=== PATIENT | female | born 1980 | race African-American/Black ===

== ENCOUNTER 2023-08-19 10:30 | Outpatient (RCR) | payer OTHER, SELFPAY ==
--- NOTE | 2023-07-20 12:21 | OTOPEVAL1 ---
Assessment and note entered by Fransisco Leonard, CRISTOPHER/Tom, CHT Evaluation Information Assessment Status Evaluation Diagnosis laceration of right index finger Subjective Information Initial injury was March 08, 2023. She cut her hand on a glass. She was stitched up in the ER and sent home. She had a round of therapy and continued to have swelling and pain. She followed up with a surgeon and underwent another surgery May 26, 2023 where they found pieces of glass in the wound. She presents today to continue therapy. She reports with functional use her hand/index finger feels weak and tight. She is right handed. Reported Pain Level Pain Score 0: Self Report Additional Pain Score Comments No pain at rest. Just sore . Reports pain can get up to 6/10 at worst . Assessment OT Clinical Summary Patient referred to outpatient hand therapy with reduced functional use of the right hand following laceration over the MCP joint of the right index finger. She had some complications due to having glass in the wound and she had to undergo a second surgery. She presents today with residual stiffness and weakness. Skilled OT indicated for modalities, manual therapy, scar mobilization, ROM , strengthening, and HEP instruction. Plan of Care Interventions Therapeutic Exercise,Manual Therapy,Therapeutic Activities,Hot Pack/Cold Pack,Ultrasound,Paraffin OT Services Indicated Yes Treatment Frequency and 1x/week for 4 weeks Duration These treatments will address the objective and functional deficits as defined above. The patient will be advanced safely and appropriately in order for the patient to progress towards his/her prior level of function. Additional exercises will be introduced and as well as a comprehensive home exercise program upon discharge, if needed, ?to ensure carryover of functional gains achieved in the clinic. This treatment plan has been reviewed and agreement upon by the patient.
--- NOTE | 2023-07-20 12:22 | OPREHPOC ---
Outpatient Therapy Plan of Care This is a Multidisciplinary Plan of Care that may contain components documented by all disciplines (PT, OT, and ST.) OT Problem 1 OT Problem #1 Knowledge Deficit OT Goal 1 Goal 1. Patient to be independent with instructed materials. Target Visit 5 OT Problem 2 OT Problem #2 Pain OT Goal 1 Goal 1. Patient to report reduced pain during hand use during ADLs, reporting less than 3/10 at worst . Target Visit 5 OT Problem 3 OT Problem #3 Impaired Range of Motion OT Goal 1 Goal 1. Be able to make a hook fist with no gap between the finger tips and the DPC. Target Visit 5 OT Problem 4 OT Problem #4 Impaired Strength OT Goal 1 Goal 1. 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 Target Visit 5
--- NOTE | 2023-08-19 11:25 | OTOPDC ---
Assessment and note entered by Fransisco Leonard, MALR/Tom, CHT Discharge Note 08/19/23 Assessment Status Discharge Diagnosis laceration of right index finger Subjective Information Patient has been working on functional ROM/ flexibility and strength of the right hand. She reports improvements in these areas, reporting some residual. She reports she is using her hand for all tasks, just reporting some residual weakness when trying to open bottles/twist off containers. Reported Pain Level Pain Score 3: Self Report Additional Pain Score Comments Patient reports her hand is constantly tender . Her discomfort does not get lower than 3/10. Assessment OT Clinical Summary Patient referred to outpatient hand therapy with reduced functional use of the right hand following laceration over the MCP joint of the right index finger. She had some complications due to having glass in the wound and she had to undergo a second surgery. She presents today for OT progress update and assessment. At this time she has progressed to functional ROM with a composite fist and hook fist. 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 Reviewed HEP and patient demonstrates excellent understanding of all materials. No further skilled OT indicated at this time.
== END 2023-08-19 13:46 | disposition home or self-care (01) ==
LOC: ANHOT 10:30
PROVIDERS: Visit Provider Orthopaedic Surgery Hand Surgery
DX: S61.310D Laceration without foreign body of right index finger with damage to nail, subsequent encounter (principal)
CPT/HCPCS: 97018; 97035; 97110; 97165